=== PATIENT | male | born 1955 | race Caucasian/White ===

== ENCOUNTER 2017-01-29 13:16 | Inpatient (IN) | payer OTHER ==
[2017-01-29] VITALS (8 sets, daily range): BP systolic 72–196; BP diastolic 49–175
[~2017-01-29] VITALS: Ht 177.8 cm; Wt 78.9 kg
[~2017-01-29 13:16] MED LIST: ADVAIR HFA120 INHALA IH; AMBIEN5 MG PO; ASPIR 8181 M1 PO; AUGMENTIN875 MG PO; CEFTIN500 MG PO; CILOSTAZOL100 MG PO; COLACE100 MG PO; DUONEB 2.5-0.5 M3 ML AEROSOL; HYDREA500 MG PO; HYZAAR 100-21 TABLET PO; KADIAN30 MG PO; LEVAQUIN500 MG PO; LEVAQUIN750 MG PO; MOBIC15 MG PO; MORPHINE SULFAT15 M1 PO; NORVASC5 MG PO; OMNICEF300 MG PO; OXYCODONE HCL5 MG PO; PAXIL40 MG PO; PEPCID20 MG PO; PERCOCET 10/1 TABLET PO; PREDNISONE10 MG PO; PREDNISONE20 MG PO; PREDNISONE5 MG PO; PRILOSEC20 MG PO; SPIRIVA RESPIMAT4 GM IH; TESSALON PERLE100 MG PO; VENTOLIN HFA18 GM IH; ZITHROMAX Z-PA250 MG PO
[2017-01-29 13:54] LABS: HEMATOCRIT 42.2 % (38.0-50.0); MCHC 32.7 G/DL (30.0-36.0); MCV 70.3 FL (86-99); PLATELET COUNT 354 K/uL (156-360); RBC DIS.WIDTH-CV 20.4 % (11.8-14.6); RBC DIS.WIDTH-SD 48.1 % (39-53)
[2017-01-29 13:55] LABS: WHITE BLOOD COUNT 110.3 K/uL (4.1-10.2)
[2017-01-29 14:41] LABS: ABS NEUTROPHIL COUNT 92.1; ANISOCYTOSIS 1+; BAND NEUTROPHILS 5.2 % (0-8.0); EOSINOPHIL ABS CT 0; HYPOCHROMASIA 1+; METAMYELOCYTES 0.9 %; MICROCYTOSIS 1+; MYELOCYTES 1.7 %; OVALOCYTES 1+; PLAT.SUFFICIENCY ADEQUATE; POIKILOCYTOSIS 1+; SEG.NEUTROPHILS 78.3 % (46.0-76.0); TOX.VACUOLIZATION 1+
[2017-01-29 14:46] LABS: CHLORIDE 90 mEq/L (99-109); POTASSIUM 3.7 mEq/L (3.7-5.4); SODIUM 120 mEq/L (136-147)
[2017-01-29 14:47] LABS: GLUCOSE 139 mg/dL (70-99)
[2017-01-29 14:49] LABS: ANION GAP 15 MEQ/L (2-14)
[2017-01-29 14:51] LABS: GFR ESTIMATE (CALCULATED) 19 mL/min/
[2017-01-29 14:52] LABS: UREA NITROGEN (BUN) 49 mg/dL (9-23)
[2017-01-29 14:59] LABS: TROP-I INTERPRETATION NEGATIVE; TROPONIN-I 0.05 ng/mL (0.0-0.30)
[2017-01-29 16:11] LABS: BASE EXCESS -12.2 mEq/L (-3 to +3); BICARBONATE 15.2 mEq/L (22-26); CARBOXY HGB 3.6 % (0-5); METHEMOGLOBIN 1.7 % (0-1.5); PCO2 39 mm Hg (35-45); PO2 51 mm Hg (80-100)
[2017-01-29 16:12] LABS: COMMENTS - BLOOD GASES A+C+; DEVICE HFNC; FI02 60 %; O2 FLOW 30 L/MIN; SITE LR; TOTAL RESP RATE 20 resp/min
[2017-01-29] MEDS ORDERED: KLONOPIN0.5 M1 PO (17:26)
[2017-01-29] MEDS ORDERED: NARCAN4 MG NS (17:34)
[2017-01-29] MEDS ORDERED: BUPROPION HCL150 M2 PO (17:34)
[2017-01-29] MEDS ORDERED: SPIRIVA RESPIMAT4 GM IH (17:35)
[2017-01-29] MEDS ORDERED: JAKAFI10 MG PO (17:37)
[2017-01-29] MEDS ORDERED: PREDNISONE10 MG PO (17:37)
[2017-01-29] MEDS ORDERED: AZITHROMYCIN250 MG1 PO (17:38)
[2017-01-29 19:46] LABS: ADD MIUA? YES; BILIRUBIN NEGATIVE; BLOOD MODERATE; COLOR YELLOW ((YELLOW)); GLUCOSE (STRIP) NEGATIVE; KETONES NEGATIVE; LEUKOCYTES NEGATIVE; NITRITE NEGATIVE; PROTEIN (STRIP) 30; SPECIFIC GRAVITY 1.019 (1.000-1.030); UROBILINOGEN 0.2 MG/DL (0.2-1.0)
[2017-01-29 20:00] LABS: BACTERIA RARE /HPF; EPITHELIAL CELLS RARE /HPF; GRANULAR CASTS 0-5 /LPF; MUCUS TRACE /LPF; RED BLOOD CELLS TNTC /HPF (0-5); UCUL ADDED? YES
[2017-01-29 21:07] LABS: BASE EXCESS -12.9 mEq/L (-3 to +3); CARBOXY HGB 3.8 % (0-5); COMMENTS - BLOOD GASES C+; DEVICE 100% HHFNC&NRB MASK; METHEMOGLOBIN 3.1 % (0-1.5); O2 FLOW 70 L/MIN; PCO2 41 mm Hg (35-45); PO2 79 mm Hg (80-100); SITE LR; TOTAL RESP RATE 22 resp/min; pH 7.17 (7.35-7.45)
[2017-01-29 21:31] LABS: METH RESISTANT S AUREUS PCR POSITIVE (NEGATIVE)
[2017-01-29 21:34] LABS: PROBE CHECK PASS
[2017-01-29 22:12] LABS: INTER. NORMALIZED RATIO 1.4; PROTHROMBIN TIME 15.3 SEC (10.2-12.9)
[2017-01-29 23:16] LABS: D-DIMER LATEX NEGATIVE
[2017-01-29 23:41] LABS: SCHISTOCYTES RARE
[2017-01-29 23:48] LABS: BASE EXCESS -13.3 mEq/L (-3 to +3); BICARBONATE 15.3 mEq/L (22-26); CARBOXY HGB 3.7 % (0-5); COMMENTS - BLOOD GASES A+C+; DEVICE VENT; METHEMOGLOBIN 3.5 % (0-1.5); O2 FLOW 0 L/MIN; PCO2 45 mm Hg (35-45); PO2 145 mm Hg (80-100); SITE LR; pH 7.14 (7.35-7.45)
[2017-01-29 23:49] LABS: FI02 100 %; MECHANICAL RATE 24 resp/min; MODE ACPC
[2017-01-29 23:50] LABS: INSPIRATION TIME 0.9 seconds; PEEP 5 CM/H20; PRESSURE CONTROL VENTILATION 15 CM H20; TOTAL RESP RATE 28 resp/min
[2017-01-30] VITALS (20 sets, daily range): BP systolic 79–125; BP diastolic 54–75
[2017-01-30 05:17] LABS: BASE EXCESS -6.4 mEq/L (-3 to +3); BICARBONATE 20.6 mEq/L (22-26); COMMENTS - BLOOD GASES A+C+; METHEMOGLOBIN 3.4 % (0-1.5); PCO2 46 mm Hg (35-45); PO2 67 mm Hg (80-100); SITE LR; pH 7.26 (7.35-7.45)
[2017-01-30 05:18] LABS: DEVICE VENT; FI02 80 %; INSPIRATION TIME 0.9 seconds; MECHANICAL RATE 24 resp/min; MODE ACPC; PEEP 5 CM/H20; TOTAL RESP RATE 29 resp/min
[2017-01-30 06:22] LABS: ALKALINE PHOSPHATASE 143 IU/L (3-129); ANION GAP 16 MEQ/L (2-14); CHLORIDE 96 MEQ/L (99-109); GLUCOSE 142 mg/dL (70-99); POTASSIUM 3.1 MEQ/L (3.7-5.4); SAMPLE HEMOLYSIS CHECK 0; SAMPLE ICTERIC CHECK 0; SAMPLE LIPEMIA CHECK 0; TOTAL BILIRUBIN 0.6 MG/DL (0.0-1.0); UREA NITROGEN (BUN) 50 mg/dL (9-23)
[2017-01-30 06:23] LABS: GFR ESTIMATE (CALCULATED) 31 mL/min/; SODIUM 131 MEQ/L (136-147)
[2017-01-30 09:58] LABS: BASE EXCESS -3.1 mEq/L (-3 to +3); BICARBONATE 23.6 mEq/L (22-26); CARBOXY HGB 3.4 % (0-5); COMMENTS - BLOOD GASES A+C+; DEVICE 840; FI02 100 %; METHEMOGLOBIN 3.3 % (0-1.5); PCO2 48 mm Hg (35-45); PO2 151 mm Hg (80-100); SITE ALINE
[2017-01-30 09:59] LABS: INSPIRATION TIME 0.9 seconds; MECHANICAL RATE 24 resp/min; MODE PC; PEEP 5 CM/H20; PRESSURE CONTROL VENTILATION 15 CM H20; TOTAL RESP RATE 31 resp/min
[2017-01-31 06:23] LABS: BASOPHIL COUNT 0.1 K/uL (0-0.1); EOSINOPHIL (%) 0 % (0-5); HEMATOCRIT 34.1 % (38.0-50.0); IMMATURE GRANULOCYTE (%) 4.8 % (0.0-0.7); IMMATURE GRANULOCYTE COUNT 2.1 K/uL; INSTRUMENT ABS NEUTROPHIL CT 34.3 K/uL; MCH 23.4 PG (29.0-34.0); MCHC 32.8 G/DL (30.0-36.0); MCV 71.2 FL (86-99); MEAN PLAT.VOLUME 9.9 uM^3 (9.0-12.4); MONOCYTE (%) 14.3 % (3-12); MONOCYTE COUNT 6.3 K/uL (0-0.8); NEUTROPHIL (%) 78.3 % (45-76); NEUTROPHIL COUNT 34.3 K/uL (1.8-6.4); PLATELET COUNT 254 K/uL (156-360); RBC DIS.WIDTH-CV 19.9 % (11.8-14.6); RBC DIS.WIDTH-SD 50.4 % (39-53)
[2017-01-31 06:38] LABS: RED BLOOD COUNT 4.79 M/uL (4.00-5.50); WHITE BLOOD COUNT 43.8 K/uL (4.1-10.2)
[2017-01-31 09:00] VITALS: BP 112/69
[2017-01-31 09:40] LABS: ANION GAP 6 MEQ/L (2-14); CHLORIDE 93 MEQ/L (99-109); GLUCOSE 119 mg/dL (70-99); MAGNESIUM 2.1 mg/dl (1.3-2.7); POTASSIUM 3.1 MEQ/L (3.7-5.4); SAMPLE HEMOLYSIS CHECK 0; SAMPLE ICTERIC CHECK 0; SAMPLE LIPEMIA CHECK 0; SODIUM 137 MEQ/L (136-147)
[2017-01-31 09:50] LABS: ALKALINE PHOSPHATASE 94 IU/L (3-129); GFR ESTIMATE (CALCULATED) > 59 mL/min/; TOTAL BILIRUBIN 0.9 MG/DL (0.0-1.0); UREA NITROGEN (BUN) 14 mg/dL (9-23)
[2017-01-31 18:38] LABS: BASE EXCESS 18.3 mEq/L (-3 to +3); BICARBONATE 42.9 mEq/L (22-26); CARBOXY HGB 2.5 % (0-5); COMMENTS - BLOOD GASES C+; METHEMOGLOBIN 1.9 % (0-1.5); PCO2 49 mm Hg (35-45); PO2 87 mm Hg (80-100); SITE A LINE; pH 7.55 (7.35-7.45)
[2017-01-31 18:39] LABS: DEVICE VENTILATOR; INSPIRATION TIME 0.9 seconds; MECHANICAL RATE 24 resp/min; MODE AC/PC; PEEP 7 CM/H20; PRESSURE CONTROL VENTILATION 19 CM H20; TOTAL RESP RATE 32 resp/min
[2017-01-31 20:00] VITALS: BP 112/69
[2017-01-31 21:00] VITALS: BP 96/69
[2017-01-31 22:28] LABS: ANION GAP 11 MEQ/L (2-14); CHLORIDE 91 MEQ/L (99-109); GFR ESTIMATE (CALCULATED) > 59 mL/min/; GLUCOSE 100 mg/dL (70-99); POTASSIUM 3.7 MEQ/L (3.7-5.4); SAMPLE HEMOLYSIS CHECK 0; SAMPLE ICTERIC CHECK 0; SAMPLE LIPEMIA CHECK 0; SODIUM 140 MEQ/L (136-147); UREA NITROGEN (BUN) 12 mg/dL (9-23)
[2017-02-01 06:14] LABS: HEMATOCRIT 33.8 % (38.0-50.0); MCH 22.9 PG (29.0-34.0); MCHC 30.8 G/DL (30.0-36.0); MCV 74.3 FL (86-99); MEAN PLAT.VOLUME 10.5 uM^3 (9.0-12.4); PLATELET COUNT 209 K/uL (156-360); RBC DIS.WIDTH-CV 19.4 % (11.8-14.6); RBC DIS.WIDTH-SD 52.1 % (39-53); RED BLOOD COUNT 4.55 M/uL (4.00-5.50)
[2017-02-01 06:22] LABS: WHITE BLOOD COUNT 31.2 K/uL (4.1-10.2)
[2017-02-01 06:28] LABS: ANION GAP ND MEQ/L (2-14); CHLORIDE 90 MEQ/L (99-109); GFR ESTIMATE (CALCULATED) > 59 mL/min/; GLUCOSE 77 mg/dL (70-99); POTASSIUM 3.3 MEQ/L (3.7-5.4); SAMPLE HEMOLYSIS CHECK 0; SAMPLE ICTERIC CHECK 0; SAMPLE LIPEMIA CHECK 0; SODIUM 140 MEQ/L (136-147); UREA NITROGEN (BUN) 12 mg/dL (9-23)
[2017-02-01 06:33] LABS: CARBON DIOXIDE (BICARBONATE) > 40.0 MEQ/L (20-31); MAGNESIUM 1.7 mg/dl (1.3-2.7)
[2017-02-01 09:00] VITALS: BP 136/88
[2017-02-01 10:22] LABS: C DIFF TOXIN NEGATIVE (NEGATIVE)
[2017-02-01 10:43] LABS: PROBE CHECK PASS; SPECIMEN PROCESSING CONTROL PASS
[2017-02-01 13:00] VITALS: BP 155/100
[2017-02-01 22:00] VITALS: BP 155/100
[2017-02-02 05:01] LABS: HEMATOCRIT 32.3 % (38.0-50.0); MCH 23.4 PG (29.0-34.0); MCHC 31.3 G/DL (30.0-36.0); MCV 74.8 FL (86-99); MEAN PLAT.VOLUME 11.4 uM^3 (9.0-12.4); PLATELET COUNT 210 K/uL (156-360); RBC DIS.WIDTH-CV 18.8 % (11.8-14.6); RBC DIS.WIDTH-SD 50.8 % (39-53); RED BLOOD COUNT 4.32 M/uL (4.00-5.50)
[2017-02-02 05:05] LABS: CHLORIDE 93 mEq/L (99-109); POTASSIUM 3.6 mEq/L (3.7-5.4); SODIUM 140 mEq/L (136-147)
[2017-02-02 05:09] LABS: ANION GAP 15 MEQ/L (2-14)
[2017-02-02 05:11] LABS: GFR ESTIMATE (CALCULATED) > 59 mL/min/
[2017-02-02 05:12] LABS: UREA NITROGEN (BUN) 14 mg/dL (9-23)
[2017-02-02 05:21] LABS: POINT-OF-CARE METER ID UU14174217; POINT-OF-CARE USER ID PHATLC
[2017-02-02 05:26] LABS: GLUCOSE 105 mg/dL (70-99)
[2017-02-02 06:01] LABS: ABS NEUTROPHIL COUNT 40.8; ANISOCYTOSIS 2+; BAND NEUTROPHILS 0.5 % (0-8.0); EOSINOPHIL ABS CT 0; HYPOCHROMASIA 1+; INSTRUMENT ABS NEUTROPHIL CT 36.6 K/uL; LYMPHOCYTES 4.9 % (15.0-45.0); MICROCYTOSIS 1+; MYELOCYTES 0.4 %; PLAT.SUFFICIENCY ADEQUATE; POLYCHROMASIA 1+; SEG.NEUTROPHILS 90.2 % (46.0-76.0); SPHEROCYTES 1+; TARGET CELLS 1+
[2017-02-03 00:52] LABS: POINT-OF-CARE METER ID UU14174217; POINT-OF-CARE USER ID PHATLC
[2017-02-03 05:43] LABS: POINT-OF-CARE METER ID UU13113731; POINT-OF-CARE USER ID PHATLC
[2017-02-03 06:22] LABS: ANION GAP 10 MEQ/L (2-14); GFR ESTIMATE (CALCULATED) > 59 mL/min/; GLUCOSE 132 mg/dL (70-99); SAMPLE HEMOLYSIS CHECK 0; SAMPLE ICTERIC CHECK 0; SAMPLE LIPEMIA CHECK 0; SODIUM 144 MEQ/L (136-147); UREA NITROGEN (BUN) 20 mg/dL (9-23)
[2017-02-03 06:27] LABS: CHLORIDE 101 MEQ/L (99-109)
[2017-02-03 07:20] LABS: HEMATOCRIT 33.5 % (38.0-50.0); MCH 23.2 PG (29.0-34.0); MCHC 30.1 G/DL (30.0-36.0); MCV 76.8 FL (86-99); PLATELET COUNT 205 K/uL (156-360); RBC DIS.WIDTH-SD 52.8 % (39-53); RED BLOOD COUNT 4.36 M/uL (4.00-5.50)
[2017-02-03 07:55] LABS: WHITE BLOOD COUNT 57.2 K/uL (4.1-10.2)
[2017-02-03 07:56] LABS: ABS NEUTROPHIL COUNT 45.3; ANISOCYTOSIS 2+; EOSINOPHIL ABS CT 0; HYPOCHROMASIA 1+; INSTRUMENT ABS NEUTROPHIL CT 44.6 K/uL; LYMPHOCYTES 4.7 % (15.0-45.0); METAMYELOCYTES 3.4 %; MICROCYTOSIS 2+; MYELOCYTES 2.5 %; PLAT.SUFFICIENCY ADEQUATE; SEG.NEUTROPHILS 73.2 % (46.0-76.0)
[2017-02-03 09:00] VITALS: BP 125/88
[2017-02-03 10:00] VITALS: BP 124/82
[2017-02-03 10:04] LABS: BASE EXCESS 10.6 mEq/L (-3 to +3); CARBOXY HGB 3.2 % (0-5); METHEMOGLOBIN 2.3 % (0-1.5); PCO2 49 mm Hg (35-45); pH 7.47 (7.35-7.45)
[2017-02-03 10:05] LABS: BICARBONATE 35.7 mEq/L (22-26); COMMENTS - BLOOD GASES A+; DEVICE 840; FI02 50 %; MODE SPONT; PEEP 10 CM/H20; PO2 52 mm Hg (80-100); PRES. SUPPORT 15 CM/H2O; SITE ALINE; TOTAL RESP RATE 34 resp/min
[2017-02-03 12:30] LABS: POINT-OF-CARE METER ID UU13113731
[2017-02-03 18:00] LABS: POINT-OF-CARE METER ID UU13113731
[2017-02-03 20:00] VITALS: BP 122/79
[2017-02-03 22:00] VITALS: BP 120/79
[2017-02-03 23:00] VITALS: BP 122/72
[2017-02-03 23:29] LABS: POINT-OF-CARE METER ID UU13113731
[2017-02-04] VITALS (16 sets, daily range): BP systolic 86–160; BP diastolic 51–102
[2017-02-04 05:27] LABS: POINT-OF-CARE METER ID UU13113731
[2017-02-04 06:35] LABS: ANION GAP 12 MEQ/L (2-14); CHLORIDE 95 MEQ/L (99-109); GFR ESTIMATE (CALCULATED) > 59 mL/min/; GLUCOSE 141 mg/dL (70-99); MAGNESIUM 1.9 mg/dl (1.3-2.7); POTASSIUM 3.8 MEQ/L (3.7-5.4); SAMPLE HEMOLYSIS CHECK 1; SAMPLE ICTERIC CHECK 0; SAMPLE LIPEMIA CHECK 0; SODIUM 145 MEQ/L (136-147); UREA NITROGEN (BUN) 28 mg/dL (9-23)
[2017-02-04 06:54] LABS: HEMATOCRIT 35.5 % (38.0-50.0); MCH 23.2 PG (29.0-34.0); MCHC 30.1 G/DL (30.0-36.0); MCV 76.8 FL (86-99); PLATELET COUNT 168 K/uL (156-360); RBC DIS.WIDTH-CV 18.9 % (11.8-14.6); RBC DIS.WIDTH-SD 51.9 % (39-53); RED BLOOD COUNT 4.62 M/uL (4.00-5.50)
[2017-02-04 06:56] LABS: WHITE BLOOD COUNT 57.6 K/uL (4.1-10.2)
[2017-02-04 07:13] LABS: ABS NEUTROPHIL COUNT 41.2; ANISOCYTOSIS 1+; ATYPICAL LYMPHOCYTE 0.9 %; BAND NEUTROPHILS 2.6 % (0-8.0); BASOPHILS 0.9 %; EOSINOPHIL ABS CT 0; INSTRUMENT ABS NEUTROPHIL CT 41.2 K/uL; LYMPHOCYTES 4.4 % (15.0-45.0); METAMYELOCYTES 2.2 %; MICROCYTOSIS 1+; MYELOCYTES 3.9 %; PLAT.SUFFICIENCY ADEQUATE; SEG.NEUTROPHILS 68.9 % (46.0-76.0); SMUDGE CELLS 9.6; STOMATOCYTES 1+
[2017-02-04 11:39] LABS: POINT-OF-CARE METER ID UU13113731
== END 2017-02-04 20:20 | DRG 870 ==
LOC: EME → EDBD 13:16 → EDSEX 13:16 → EME 13:16 → EDOF 18:22 → ENRESERV 18:22 → 4WEST 18:22 → ENRESERV 18:27 → 4WEST 19:55
PROVIDERS: Emergency Medicine; Internal Medicine Critical Care Medicine; Internal Medicine Nephrology; Specialist
DX: A41.9 Sepsis, unspecified organism (principal); J96.21 Acute and chronic respiratory failure with hypoxia; R65.21 Severe sepsis with septic shock; J44.0 Chronic obstructive pulmonary disease with (acute) lower respiratory infection; J15.1 Pneumonia due to Pseudomonas; E87.4 Mixed disorder of acid-base balance; J84.9 Interstitial pulmonary disease, unspecified; N17.9 Acute kidney failure, unspecified; C85.90 Non-Hodgkin lymphoma, unspecified, unspecified site; Z66 Do not resuscitate; Z51.5 Encounter for palliative care; D45 Polycythemia vera; D64.9 Anemia, unspecified; D72.820 Lymphocytosis (symptomatic); E61.1 Iron deficiency; E78.5 Hyperlipidemia, unspecified; E87.1 Hypo-osmolality and hyponatremia; I10 Essential (primary) hypertension; K21.9 Gastro-esophageal reflux disease without esophagitis; K42.9 Umbilical hernia without obstruction or gangrene; R33.9 Retention of urine, unspecified; Z80.0 Family history of malignant neoplasm of digestive organs; Z80.8 Family history of malignant neoplasm of other organs or systems; Z85.71 Personal history of Hodgkin lymphoma; Z87.891 Personal history of nicotine dependence; Z99.81 Dependence on supplemental oxygen; R19.7 Diarrhea, unspecified; R40.0 Somnolence; M54.9 Dorsalgia, unspecified; E87.6 Hypokalemia; E83.42 Hypomagnesemia; E83.39 Other disorders of phosphorus metabolism; I46.9 Cardiac arrest, cause unspecified
CPT/HCPCS: 36600; 71010; 76937; 80048; 80048 91; 80053; 81003; 82803; 82948; 83605; 83735; 84100; 84484; 85025; 85027; 85378; 85610; 87040; 87070; 87077; 87086; 87147; 87186; 87205; 87493; 87641; 93005; 94002; 94003; 94640; 94640 76; 94760; 94799; 99202; 99281; 99285; C1751; J0692; J1100; J1644; J1815; J1940; J1956; J2250; J2270; J2543; J2704; J2920; J3010; J3260; J3360; J3370; J3475; J3480; J7030; J7050; J7070; J7120; J7644; S0028